=== PATIENT | female | born 1985 | race Caucasian/White ===

== ENCOUNTER 2023-08-08 12:27 | Outpatient (REF) | payer OTHER, SELFPAY ==
[2023-08-08 14:10] LABS: Alanine Aminotransferase 14 U/L (0-31); Albumin Level 4.2 g/dL (3.5-5.0); Alkaline Phosphatase 68 U/L (39-117); Anion Gap 9 (12-20); Aspartate Amino Transferase 15 U/L (5-31); Bilirubin Direct 0.1 mg/dL (0.0-0.5); Bilirubin Total 0.4 mg/dL (0.0-1.0); Blood Urea Nitrogen 13 mg/dL (9-16); Calcium 9.6 mg/dL (8.4-10.2); Carbon Dioxide 23 mmol/L (22-29); Chloride 111 mmol/L (96-108); Estimated Glomerular Filt Rate > 60; Glucose Random 83 mg/dL (60-115); Potassium 3.8 mmol/L (3.3-5.1); Sodium 139 mmol/L (135-145); Total Protein 7.5 g/dL (6.5-8.0)
== END 2023-08-08 12:28 | disposition home or self-care (01) ==
LOC: HO.LAB 12:27
PROVIDERS: Visit Provider Psychiatry & Neurology Neurology
DX: G40.909 Epilepsy, unspecified, not intractable, without status epilepticus (principal)
CPT/HCPCS: 36415; 80048; 80076

== ENCOUNTER 2025-02-04 08:20 | Outpatient (AMB) | payer OTHER, SELFPAY ==
--- NOTE | 2025-02-04 08:31 | MHC.OFFVIS ---
Intake Visit Reasons: 6 mo fu Allergies walnut (WALNUT) Allergy (Intermediate, Unverified 01/08/20 15:22) ITCHY THROAT duloxetine (From Cymbalta) Allergy (Unknown, Verified 02/04/25 08:32) Unknown SKIN FRUIT Allergy (Intermediate, Uncoded 01/08/20 15:22) ITCHY THROAT fruits, fresh any kind Allergy (Unknown, Uncoded 01/27/14 00:00) itching Medication List - Last Reconciled 02/04/25 by Clarisa Hooper CNP bupropion HCl 75 mg PO QAM cariprazine (Vraylar) 6 mg PO DAILY clonidine HCl mg PO cyclobenzaprine 10 mg PO BEDTIME fexofenadine (Allergy Relief (fexofenadine)) 180 mg PO DAILY fluoxetine 20 mg PO DAILY fluoxetine 10 mg PO DAILY lorazepam mg PO topiramate Take 1 tablet by mouth in the morning and 2 tablets by mouth in the evening. 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 The second time she was walking outside and fell. Everything went black and it took her some time to notice that she had fallen. She did not urinate. She was down for a few minutes.) with family h/o seizure disorder (her aunt). She was doing okay. She may have had seizure in sleep about 4 months ago or so, but is unsure exactly when, as she woke up with tongue bite. No missed doses of topiramate. Sleep was okay. [facility] Medical History (Updated 02/04/25 @ 08:36 by Clarisa Hooper CNP) Fibromyalgia Pituitary adenoma Bipolar disorder Anxiety Depression Blindness right eye category 3, normal vision left eye Review of Systems Const Denies chills, Denies daytime sleepiness, Denies difficulty sleeping, Denies fatigue, Denies fever(s), Denies frequent falls, Denies headache(s), Denies increased appetite, Denies poor appetite, Denies snoring, Denies weakness, Denies weight gain and Denies weight loss Eyes Denies loss of vision ENT Denies vertigo, Denies dizziness and Denies headache(s) Card Denies chest pain at rest, Denies chest pain with activity, Denies syncope, Denies leg edema and Denies palpitations Resp Denies snoring GI Denies constipation, Denies heartburn, Denies diarrhea and Denies nausea Denies urinary frequency, Denies urinary incontinence and Denies urinary urgency Musc Denies abnormal gait, Denies numbness and Denies tingling Skin/Breast Denies dry skin and Denies rash Neuro Denies abnormal gait, Denies vertigo, Denies dizziness, Denies syncope, Denies frequent falls, Denies headache(s), Denies lack of coordination, Denies loss of vision, Denies memory loss, Denies numbness, Denies restless legs, Reports seizure-like activity, Denies tingling, Denies paresthesias, Denies tremor(s) and Denies weakness Psych Denies anxiety, Denies depression, Denies auditory hallucinations, Denies memory loss, Denies visual hallucinations and Denies suicidal ideation Endo Denies fatigue and Denies palpitations Physical Exam Const Other: General Appearance:? normal, in no acute distress. Skin:? no rashes, no significant birthmarks. Heart:? S1, S2 normal, no murmurs. Lungs:? clear anteriorly and posteriorly. Extremities:? no edema. Psych:? alert, oriented, cognitive function intact, cooperative with exam. Neuro Other: Mental Status:?Normal attention, orientation, memory and affect.? Cranial Nerves:?Pupils are equal, round and reactive to light. External occular muscles are intact. Visual brown are full in left. Face is symmetrical. Facial sensations are normal. Tongue is midline. Palate elevates symmetrically. Shoulder shrugging is normal. Hearing to bedside conversation is normal. Sensory Exam:?....? Coordination:?No ataxia,?no titubation.? Gait Exam: Within normal limits. Cerebellar Signs:?Xpgyag-[id number] is okay. Extrapyramidal System:?No tremor, rigidity with normal facial expressions.? Pronator Drift:?Not present.? Involuntary Movements:?No tremors seen.? Speech:?Normal.? Results Reviewed Results Reviewed: MRI brain WWO at [place] in Feb 2022: No sig abnormality, MRI limited due to motion MRI brain WO at in 2014: non specific WM changes (reported) Amb EEG at [facility] in Jul 2020: R sided sharps EEG at [facility] in Dec 2019: WNL Assessment & Plan Assessment & Plan (1) Epilepsy: Code(s): G40.909 - Epilepsy, unspecified, not intractable, without status epilepticus Category: Medical Qualifiers: Epilepsy type: unspecified Intractability: not intractable Status epilepticus: without status epilepticus Qualified Code(s): G40.909 - Epilepsy, unspecified, not intractable, without status epilepticus Plan: Continue topiramate 100mg 1 tablet in the morning and 2 tablets at bedtime. Follow up in 3 months or sooner if needed. Plan Meds tried: Oxcarbazepine, topiramate Coding Level of Care Code Est Pt Level 4 (24634) Diagnoses Nonintractable epilepsy without status epilepticus, unspecified epilepsy type G40.909 Epilepsy type: unspecified Intractability: not intractable Status epilepticus: without status epilepticus
--- OUTSIDE RECORDS SUMMARY | 2025-02-04 08:40 | XMS_ITS | Clinical Summary ---
Author Organization Formerly [facility] Address [address] [place] [address] Care Team Providers Care Instructor Trainer [employer]ine [employer] Name Role Phone Bernie Higgins MD Primary Care Provider [phone] Allergies Active Allergy Reactions Criticality Noted Date Comments Duloxetine Hcl 07/20/2020 Fruit 07/20/2020 Nuts 07/20/2020 Medications Medication Sig Dispensed Refills Start Date End Date Status pregabalin (LYRICA) 75 MG capsule Take 75 mg by mouth 2 (two) times a day. 0 Active cabergoline (DOSTINEX) tablet 0.5 mg Take 0.25 mg by mouth 2 (two) times a week. 0 Active FLUoxetine (PROzac) 40 MG capsule Take 40 mg by mouth daily. 0 Active benztropine (COGENTIN) 1 MG tablet Take 1 mg by mouth 2 (two) times a day. 0 Active OXcarbazepine (TRILEPTAL) 300 MG tablet Take 300 mg by mouth 2 (two) times a day. 0 Active cloNIDine (CATAPRES) tablet 0.1 mg Take 0.1 mg by mouth 2 (two) times a day. 0 Active Active Problems Problem Noted Date Diagnosed Date Easy bruising 07/21/2020 Social History Tobacco Use Types Packs/Day Years Used Date Smoking Tobacco: Never Smokeless Tobacco: Never Alcohol Use Standard Drinks/Week Comments Yes 0 (1 standard drink = 0.6 oz pur e alcohol) occasional Sex and Gender Information Value Date Recorded Sex Assigned at Not on file Gender Identity Not on file Sexual Orientation Not on file Job Start Date Occupation Industry Not on file Not on file Not on file Last Filed Vital Signs Vital Sign Reading Time Taken Comments Blood Pressure 118/68 07/21/2020 9:49 AM EDT Pulse 74 07/21/2020 9:49 AM EDT Temperature 36.2 C (97.2 F) 07/21/2020 9:49 AM EDT Respiratory Rate - - Oxygen Saturation 100% 07/21/2020 9:49 AM EDT Inhaled Oxygen Concentration - - Weight 114.9 kg (253 lb 3.2 oz) 07/21/2020 9:49 AM EDT Height 180.3 cm (5' 11 ) 07/21/2020 9:49 AM EDT Body Mass Index 35.31 07/21/2020 9:49 AM EDT Plan of Treatment Health Maintenance Due Date Last Done Comments Hepatitis B Vaccines (1 of 3 - 3-dose series) 1984 Hepatitis C Screening 1984 COVID-19 Vaccine (#1) 1984 Depression Screening 1996 Preventative Health Evaluation 2002 DTap / Tdap / Td (1 - Tdap) 2003 Cervical Cancer Screening (P ap Smear) 2005 Influenza Vaccine (#1) 2024 Pneumococcal Vaccine Aged Out No long er eligible based on patient's age to complete this topic RSV Ped < 20 months Aged Out No longe r eligible based on patient's age to complete this topic Care Teams Instructor Trainer Canine Service Relationship Specialty Start Date End Date Bernie Higgins MD PCP - General Internal Medicine 06/28/20
--- OUTSIDE RECORDS SUMMARY | 2025-02-04 08:40 | XMS_ITS | Clinical Summary ---
Author Organization [facility] it Address [address] [place] [address] Care Team Providers Care [employer] Rep Name Role Phone Zoya Billingsley MD Primary Care Provider [phone] Allergies Active Allergy Reactions Criticality Noted Date Comments Duloxetine Hcl Hives 04/09/2017 Raw Fruit 07/09/2012 Tree Nuts Itching 07/29/2015 Medications cloNIDine (CATAPRES) 0.1 mg tablet Take 1 tablet (0.1 mg total) by mouth. Active medical supply, miscellaneous (MISCELLANEOUS MEDICAL SUPPLY MISC) Inhale. 6 Active FLUoxetine (PROzac) 40 mg capsule Taken with 20 mg tablet, 60 mg nightly 0 Active FLUoxetine (PROzac) 20 mg capsule Takes 60 mg Nightly 3 Active LORazepam (ATIVAN) 0.5 mg tablet Take 1 tablet (0.5 mg total) by mouth. 1 Active topiramate (TOPAMAX) 100 mg tablet 1 tablet (100 mg total). 2 Active cariprazine (Vraylar) 6 mg capsule 1 capsule (6 mg total). 3 Active Active Problems Problem Noted Date Diagnosed Date Hyperprolactinemia (CMS/HCC V24) 05/24/2023 Palpitations 11/23/2022 Overview (06/29/2023): Last Assessment & Plan: Patient's palpitations have also quieted down. And on monitor there are just minimal single premature's. In light of a normal stress test I see no need for us to pursue further evaluation she says she can live with the palpitations as she is been reassured that the cardiac status is stable which it is. At this point I would not pursue treatment for the palpitations any further him to come back if the symptoms worsen Chest pain 08/07/2022 Overview (06/29/2023): Last Assessment & Plan: States the chest pain is stopped with gallbladder removal. Chronic cough 06/21/2022 Overview (06/29/2023): Last Assessment & Plan: Haydee has chronic cough since a year ago. She is a lifetime non-smoker and does not have asthma. Given her history, normal physical examination I explained her that the most common causes of cough are related to her untreated postnasal drip and allergies and may be GERD. Given the normal results of the pulmonary function test, I explained her that this is not sequela from COVID. In her case normal physical examination and normal chest x-ray, normal pulmonary function test support the diagnosis of cough related to postnasal drip and allergies. The plan is the following: Start Flonase 1 puff in each nostril once a day [id number] antihistamines. I will see her back in 4 months. Fatty liver 05/15/2022 Gallstones 05/15/2022 Prediabetes 05/11/2022 Hyperlipidemia 01/05/2021 Seizure disorder ([facility] V24, [facility] V28) 11/22 Overview (06/29/2023): Dr Chen Easy bruising 07/21/2020 Learning disability 05/27/2018 Overview (06/29/2023): 3rd grade reading level per pt Intestinal malabsorption following gastrectomy 0 10/30/2017 Pituitary adenoma ([facility] [place], [facility] [place] 10/2017 Overview (06/29/2023): Saw Dr. Howie Hinds 2017 - ?G[place] syndrome - MRI showed a microadenoma. Dr. Hinds left practice; pt hasn't seen endocrinology in followup. Referred again in 05/2018 B[place] disorder [place] [place] [facility] [place] 04/25 Overview (06/29/2023): [facility] Severe obesity (BMI 35.0-39. 9) with comorbidity [place] [place] [facility] [place] 12/22/2015 Overview (06/29/2023): s/p gastric sleeve (Feb 2016) Obstructive sleep apnea 04/08/2015 Overview (06/29/2023): [facility] Polysomnogram: Date 12/10/2020; Wt 260#; BMI 36; SE 96%; SM 97%; REM 5%; RDI 51 (AHI 36), REM (RDI 17 - AHI 17), Central apneas 2; Obstructive apneas 8; Mixed apneas 0; hypopneas 197; RERAs 86; average oxygen saturation 93% (lowest 85% - without saturations <88% for 5% or more of study); PLMs 0. - Obstructive Sleep Apnea - severe overall and moderate in REM; mostly hypopneas; without sleep related hypoventilation by 2020 polysomnogram. Last Assessment & Plan: Mrs. Zambrano has not been using the CPAP machine. I explained her that in order to decrease her cardiovascular risk and avoid the company to take away her CPAP she need to use it. She is willing to use it. I told her to bring the SD card to [facility] in order for us to obtain the compliance report. I will see her back in 4 months. Fibromyalgia 04/21/2014 Overview (06/29/2023): See note 04/21/14. Followed by Rheum (Dr. Mcgovern) Arcuate uterus 11/08/2012 Macular scar 05/27/2012 PCOS (polycystic ovarian syndrome) 05/23/2012 Overview (06/29/2023): Based on Dr. Richardson's note 10/2011 Choroidal neovascularization, right eye 05/23/19 13 Immunizations Immunization Administration Dates Next Due Influenza Quadravalent, MDCK , 0.5ml, preservative free (Flucelvax) 6mo and older 05/24/2023,01/05/2021,01/01/2020 PPD Test 05/23/2017 Td Tetanus diptheria (Tdvax) 7yo and older 12/31,08/06/2012 Tdap Tetanus diptheria acell ular pertussis (Boostrix; Adacel) 7yo and older 07/28/2009 Surgical History Surgery Date Site/Laterality Comments BARIATRIC SURGERY 02/2016 PROCEDURE: WA LAPS GSTRC RSTRICTIV PX LONGITUDINAL GASTRECTOMY; COMMENT: Dr Chandler (sleeve gastrectomy) [facility] CHOLECYSTECTOMY 10/02/2022 PROCEDURE: HISTORICAL CHOLECYSTECTOMY; COMMENT: dr. ronquillo Medical History Medical History Date Comments Anxiety 11/16/2011 DX:Anxiety Arcuate uterus 11/08/2012 DX:Arcuate uteru s Choroidal neovascularization , right eye 05/23/2012 DX:Choroidal neovascularizat ion, right eye Depression 11/16/2011 DX:Depression Impairment level: one eye: t otal impairment: other eye: normal vision 07/28/2009 DX:Impairment lev el: one eye: total impairment: other eye: normal vision; COMMENT: Macular scar right (from choroidal neovascularization) Seen by Dr. Mora 2009 and late 2011 Macular scar 05/27/2012 DX:Macular scar PCOS (polycystic ovarian syndrome) 05/23/2012 DX:PCOS (polycystic ovarian syndrome); COMMENT: Based on Dr. Richardson's note 10/2011 RUTH (obstructive sleep apnea) 04/08/2015 DX :RUTH (obstructive sleep apnea); COMMENT: resolved by home sleep study 06/2016 S/P laparoscopic sleeve gastrectomy 08/11/2016 DX:S/P laparoscopic sleeve gastrectomy Pituitary microadenoma with hyperprolactinemia (CMS/HCC V24, CMS/HCC V28) 05/27/2018 DX:Pituitary microadenoma wi th hyperprolactinemia (HCC) Pituitary adenoma (CMS/HCC V 24, CMS/HCC V28) 09/27/2017 DX:Pituitary adenoma (HCC); COMMENT: Saw Dr. Howie Hinds 2017 - ?G[place]man[place] syndrome - MRI showed a microadenoma. Dr. Hinds left practice; pt hasn't seen endocrinology in followup. Referred again in 05/2018 Seizure disorder (CMS/HCC V2 4, CMS/HCC V28) 12/15/2020 DX:Seizure disorder (HCC); C OMMENT: Dr Chen Family History Medical History Relation Name Comments Coronary artery disease Father Hypertension Father Diabetes Maternal Grandmother HTN, [place] Other: alive and well Mother Ovarian cancer Other cousin Diabetes Paternal Grandmother HTN Breast cancer Neg Hx Colon cancer Neg Hx Uterine cancer Neg Hx Relation Name Status Comments Brother Alive Father Alive Maternal Grandfather Maternal Grandmother Alive Mother Alive Other Paternal Grandfather Paternal Grandmother Sister Alive Social History Tobacco Use Types Packs/Day Years Used Date Smoking Tobacco: Never Smokeless Tobacco: Never Alcohol Use Standard Drinks/Week Comments Yes 0 (1 standard drink = 0.6 oz pur e alcohol) Comments Unknown Sex and Gender Information Value Date Recorded Sex Assigned at Not on file Legal Sex Female 8:29 AM EST Gender Identity Not on file Sexual Orientation Not on file Obstetrics History Last Filed Vital Signs Vital Sign Reading Time Taken Comments Blood Pressure 128/74 05/24/2023 10:17 AM EST Pulse 86 05/24/2023 10:17 AM EST Temperature - - Respiratory Rate - - Oxygen Saturation - - Inhaled Oxygen Concentration - - Weight 123 kg (270 lb 3.2 oz) 05/24/2023 10:17 A M EST Height 180.3 cm (5' 11 ) 05/22/2023 1:35 PM EST Body Mass Index 37.69 05/22/2023 1:35 PM EST Plan of Treatment Health Maintenance Due Date Last Done Comments Breast Cancer Screening 1984 Hepatitis B Vaccines (1 of 3 - 19+ 3-dose series) 2003 Cervical Cancer Screening: HPV 2005 HPV Vaccines (1 - 3-dose SCD M series) 2011 HIV Screening 04/01/2022 Hepatitis C Screening 04/01/2022 Social Influencers of Health Screening 05/09/2023 05/09/2022 Depression Screening 04/23/2024 COVID-19 Vaccine (4 - 2024-2 6 season) 2024 05/29/2021, 09/05/2020, 08/15/2020 Influenza Vaccine (#1) 2024 , 01/05/2021, 01/01/2020 Cholesterol Screening (Lipid Panel) 05/16/2027 05/16/2022 DTaP,Tdap,and Td Vaccines (4 - Td or Tdap) 12/31/2029 01/01/2020, 08/06/2012, 07/28/2009 RSV Immunization Adult Patients (1 - 1-dose 75+ series) 2059 HIB Vaccines Aged Out No longer eligi ble based on patient's age to complete this topic Hepatitis A Vaccines Aged Out No long er eligible based on patient's age to complete this topic IPV Vaccines Aged Out No longer eligi ble based on patient's age to complete this topic MMR Vaccines Aged Out No longer eligi ble based on patient's age to complete this topic Meningococcal ACWY Vaccine Aged Out N o longer eligible based on patient's age to complete this topic Meningococcal B Vaccine Aged Out No l onger eligible based on patient's age to complete this topic Pneumococcal Vaccine: Pediatrics (0 to 5 Years) and At-Risk Patients (6 to 49 Years) Aged Out No longer eligible b ased on patient's age to complete this topic RSV Immunization Patients Under 20 months Aged Out No longer eligible b ased on patient's age to complete this topic Varicella Vaccines Aged Out No longer eligible based on patient's age to complete this topic Care Teams [employer] Rep Relationship Specialty Start Date End Date Zoya Billingsley MD [address] [place] [address] PCP - General Internal Medicine 09/23/20
== END 2025-02-04 08:45 | disposition home or self-care (01) ==
LOC: HO.HSM 08:21
PROVIDERS: PCP Physician Assistant; Visit Provider Registered Nurse
DX: G40.909 Epilepsy, unspecified, not intractable, without status epilepticus (principal)
CPT/HCPCS: 99214

== ENCOUNTER → 2025-02-04 08:20 | Outpatient (BNVA) | payer OTHER, SELFPAY | PROVIDERS: PCP Physician Assistant; Visit Provider Registered Nurse | DX: G40.909 Epilepsy, unspecified, not intractable, without status epilepticus (principal) | CPT/HCPCS: 99212 ==